=== PATIENT | female | born 1995 ===

== ENCOUNTER 2017-04-06 03:27 | Observation (INO) | payer OTHER ==
[2017-04-06 03:33] VITALS: BMI 23.6
--- NOTE | 2017-04-06 03:58 | ED PDOC ---
Lower Extremity Pain/Injury Time Seen by Provider: 04/06/17 03:48 Chief Complaint (Nursing): Lower Extremity Problem/Injury Chief Complaint (Provider): right foot pain History Per: Patient History/Exam Limitations: no limitations Onset/Duration Of Symptoms: Hrs Current Symptoms Are (Timing): Still Present Additional History Per: Patient Additional Complaint(s): 21 y/o female presents with right foot pain x 1 hour. Patient states she tripped and fell down approx 8 steps. Patient notes diffuse pain to right ankle and right foot, worse with movement. Denies numbness/weakness right lower extremity, limitation of movement. Past Medical History Reviewed: Historical Data, Nursing Documentation, Vital Signs Vital Signs: Last Vital Signs Temp 98.9 F 04/06/17 03:33 Pulse 72 04/06/17 03:33 Resp 16 04/06/17 03:33 BP 112/80 04/06/17 03:33 Pulse Ox 100 04/06/17 03:33 - Medical History PMH: Anxiety - Surgical History Surgical History: No Surg Hx - Family History Family History: States: Unknown Family Hx - Home Medications Home Medications: Ambulatory Orders Medication Instructions Recorded Aspirin [Adult Low Dose Aspirin EC] 81 mg PO DAILY #7 tablet. 04/07/17 Ergocalciferol (Vitamin D2) 50,000 unit PO QD7 #6 capsule 04/07/17 [Vitamin D2] oxyCODONE/Acetaminophen [Percocet 1 tab PO Q4 PRN #0 tab 04/07/17 5/325 mg Tab] - Allergies Allergies/Adverse Reactions: Allergies Allergy/AdvReac Type Severity Reaction Status Date / Time No Known Allergies Allergy Verified 04/06/17 03:32 Review of Systems ROS Statement: Except As Marked, All Systems Reviewed And Found Negative Musculoskeletal: Positive for: Foot Pain (right ankle, right foot) Physical Exam - Reviewed Nursing Documentation Reviewed: Yes Vital Signs Reviewed: Yes - Physical Exam Appears: Positive for: Well, Non-toxic, No Acute Distress (sleeping) Head Exam: Positive for: ATRAUMATIC, NORMAL INSPECTION, NORMOCEPHALIC Cardiovascular/Chest: Positive for: Regular Rate, Rhythm Respiratory: Positive for: Normal Breath Sounds Pulses-Dorsalis Pedis (L): 2+ Pulses-Dorsalis Pedis (R): 2+ Pulses-Post. Tibialis (L): 2+ Pulses-Post. Tibialis (R): 2+ Back: Positive for: Vertebral Tenderness (diffuse lspine; no bony deformity. ), Muscle Spasm (b/l lspine paraspinals). Negative for: L CVA Tenderness, R CVA Tenderness, Decreased ROM Extremity: Negative for: Normal ROM (limited ROM right ankle due to pain. + swelling, most noted right lateral malleolus. Distal NV intact) Neurologic/Psych: Positive for: Alert, Oriented. Negative for: Motor/Sensory Deficits - Laboratory Results Result Diagrams: 04/06/17 10:40 04/06/17 10:25 - ECG O2 Sat by Pulse Oximetry: 100 - Progress ED Course And Treament: xray right foot, xray right ankle, ibuprofen PO EXAM: XR Right Foot Complete, 3 or More Views CLINICAL HISTORY: 21 years old, female; Injury or trauma; Fall; Initial encounter; Blunt trauma; Foot; Right TECHNIQUE: Frontal, lateral and oblique views of the right foot. EXAM DATE/TIME: Exam ordered 04/06/2017 3:54 AM COMPARISON: No relevant prior studies available. FINDINGS: Bones/joints: There is comminuted fracture of the calcaneus best appreciated image 1. This extends to the calcaneal cuboidal articular surface. It is suspected that in addition fracture lines extend to the tarsal sinus, and possibly to the subtalar joints. No dislocation. Soft tissues: Unremarkable. No radiopaque foreign body. IMPRESSION: Comminuted fracture of the calcaneus with intra-articular extension. Possible additional fracture of the cuboid. CT is recommended for clarification. EXAM: XR Right Ankle Complete, 3 or More Views CLINICAL HISTORY: 21 years old, female; Injury or trauma; Fall; Initial encounter; Blunt trauma; Ankle; Right TECHNIQUE: Frontal, lateral and oblique views of the right ankle. EXAM DATE/TIME: Exam ordered 04/06/2017 3:54 AM COMPARISON: No relevant prior studies available. FINDINGS: Bones/joints: There is a comminuted fracture of the calcaneus which is now seen clearly to extends to the posterior subtalar joint, to the calcaneal cuboidal joint, and probably to the middle subtalar joint. There is probable fracture of the cuboid. No dislocation. Soft tissues: There is prominent lateral soft tissue swelling. IMPRESSION: Recommend CT for clarification of the bony relationships of the markedly comminuted calcaneal fracture which extends to multiple articular surfaces, as well as probable fracture of the cuboid Case discussed with Podiatry resident on-call; will order CT lower extremity Disposition - Clinical Impression Clinical Impression: Calcaneal fracture, Back pain - Patient ED Disposition Is Patient to be Admitted: No - Disposition Disposition: Transfer of Care Disposition Time: 06:00 Condition: STABLE Patient Signed Over To: Stephen Alicea Handoff Comments: pending cinthia xray, podiatry eval
[2017-04-06] MEDS ORDERED: Oxycodone/Acetaminophen 5/325 mg Tab PO ONE (05:26)
[2017-04-06] MEDS ORDERED: Oxycodone/Acetaminophen 5/325 mg Tab ONE (05:47)
--- NOTE | 2017-04-06 06:09 | ED PDOC ---
- ECG O2 Sat by Pulse Oximetry: 100 Medical Decision Making Medical Decision Makin Patient signed out to me from ANGELIQUE Esquivel pending CT, XR, and podiatry consult. Scribe Attestation: Documented by Gina Jenkins acting as a scribe for Stephen Alicea MD. Scribe Attestation: All medical record entries made by the Scribe were at my direction and personally dictated by me. I have reviewed the chart and agree that the record accurately reflects my personal performance of the history, physical exam, medical decision making, and the department course for this patient. I have also personally directed, reviewed, and agree with the discharge instructions and disposition. Disposition - Clinical Impression Clinical Impression: Calcaneal fracture, Back pain - POA Present On Arrival: None - Disposition Disposition: Transfer of Care Disposition Time: 07:00 Condition: FAIR Patient Signed Over To: Betsy Pineda Handoff Comments: Pending CT, XR, and podiatry consult
--- NOTE | 2017-04-06 06:17 | CP.PCM.CON ---
Addendum entered and electronically signed by Arnulfo Grant DPM 04/06/17 11:59 : Patient's surgery to now go at 7pm, not 8pm. Original Note: History of Present Illness - History of Present Illness History of Present Illness: 21 y/o female patient presents to the ED 2 hours s/p fall down the stairs. Patient states she is having severe pain and swelling in the right foot and cannot bear any weight. Patient states she has no significant past medical history. Patient admits to taking Percocet for sciatica, which she has had for several years. Patient does not take any other medications. Patient denies any F /C/N/V/SOB. PMHx: no significant PMH PSH: none Allergies: NKDA Social: social EtOh use, 1-2 cigarettes per month, denies illicit drug use Review of Systems - Review of Systems All systems: reviewed and no additional remarkable complaints except (HPI) Past Patient History - Past Social History Smoking Status: Never Smoked - PSYCHIATRIC Hx Anxiety: Yes - SURGICAL HISTORY Hx Surgeries: No - ANESTHESIA Hx Anesthesia: No Meds Allergies/Adverse Reactions: Allergies Allergy/AdvReac Type Severity Reaction Status Date / Time No Known Allergies Allergy Verified 04/06/17 03:32 Physical Exam - Constitutional Appears: Well, Non-toxic, No Acute Distress - Extremities Exam Additional comments: Right lower extremity focused examination: Vasc: DP/PT pulses palpable 2/4, moderate pedal perimalleolar edema noted medially. CFT< 3 sec to all digits. Temperature gradient WNL. Derm: Ecchymosis with surrounding erythema noted to medial ankle. Skin and soft tissue intact, no open lesions, no clinical signs of infection Neuro: Protective sensation grossly intact Ortho: Severe tenderness noted on palpation of medial ankle and entirety of right foot and ankle. - Neurological Exam Neurological exam: Alert, Oriented x3 - Psychiatric Exam Psychiatric exam: Normal Affect, Normal Mood Results - Vital Signs Recent Vital Signs: Last Vital Signs Temp 98.9 F 04/06/17 03:33 Pulse 72 04/06/17 03:33 Resp 16 04/06/17 03:33 BP 112/80 04/06/17 03:33 Pulse Ox 100 04/06/17 06:09 Assessment & Plan - Assessment and Plan (Free Text) Assessment: 21 y/o female seen in ED for right foot intraarticular comminuted calcaneal fracture with possible 2nd metatarsal base fracture secondary to trauma Plan: Pt seen and evaluated in the ED after podiatry consulted X-rays reviewed CT scan ordered of left lower extremity Strict ice and elevation to right lower extremity Patient to remain non-WB to right lower extremity Patient will be going for surgery at 8pm tonight Medical clearance appreciated Patient to be NPO after breakfast Thank you for this consult
--- NOTE | 2017-04-06 07:18 | ED PDOC ---
- ECG O2 Sat by Pulse Oximetry: 100 - Other Rad XR L-spine X-Ray: Viewed By Me (No fx.) - CT Scan/US CT RLE Other Rad Studies (CT/US): Radiology Report Reviewed (Acute comminuted fracture in the calcaneus with approximately 8 mm distraction of fracture fragments and superior displacement of a fragment in the midbody. No evidence of dislocation. ) Disposition - Clinical Impression Clinical Impression: Calcaneal fracture, Back pain - POA Present On Arrival: Falls Or Trauma - Disposition Disposition: Hospitalized as Observation Patient Disposition Time: 09:34 Condition: STABLE Addendum Addendum: 04/06/17 07:00 Pt signed out by Dr. Alicea pending CT and XR.
[2017-04-06] MEDS ORDERED: Oxycodone/Acetaminophen 5/325 mg Tab PO PRN ×2 (09:42→23:31)
--- NOTE | 2017-04-06 09:50 | CT ---
PROCEDURE: CT lower extremity with contrast HISTORY: right calcaneal fracture COMPARISON: None. TECHNIQUE: Contiguous axial images of the right lower extremity with contrast. Coronal and sagittal reformats generated. Radiation dose: Total exam DLP = 361.98 mGy-cm. This CT exam was performed using one or more of the following dose reduction techniques: Automated exposure control, adjustment of the mA and/or kV according to patient size, and/or use of iterative reconstruction technique. FINDINGS: BONES: There is an acute comminuted fracture in the calcaneus with approximately 8 mm distraction of fracture fragments. There is also superior displacement of the fracture fragment in the midbody. The talocalcaneal and calcaneocuboid joints are normal. Bone alignment is normal. The talonavicular joint is also normal. The visualized tarsometatarsal joints are normal. OTHER FINDINGS: The periarticular muscles are grossly normal in appearance. There is diffuse subcutaneous edema and soft tissue swelling. IMPRESSION: Acute comminuted fracture in the calcaneus with approximately 8 mm distraction of fracture fragments and superior displacement of a fragment in the midbody. No evidence of dislocation.
[2017-04-06 10:44] LABS: HEMOGLOBIN 11.7 g/dL (12.0-16.0); MEAN CELL VOLUME 86.9 fl (81.0-99.0); MEAN CORPUSCULAR HEMOGLOBIN 28.8 pg (27.0-31.0); MEAN CORPUSCULAR HGB CONC 33.2 g/dL (33.0-37.0); RBC 4.06 Mil/uL (3.80-5.20); RED CELL DISTRIBUTION WIDTH 12.8 % (11.5-14.5); WHITE BLOOD COUNT 14.3 K/uL (4.8-10.8)
[2017-04-06 10:52] LABS: BLOOD UREA NITROGEN 8 mg/dl (7-17); CALCIUM 8.5 mg/dL (8.4-10.2); GFR AFRICAN-AMERICAN > 60; GFR NON-AFRICAN AMERICAN > 60
[2017-04-06 11:05] LABS: PROTHROMBIN TIME 10.9 Seconds (9.8-13.1)
[2017-04-06] MEDS ORDERED: Dextrose 5%/0.45% NS 1,000 ML IV SCH (12:45)
--- NOTE | 2017-04-06 14:10 | RAD ---
PROCEDURE: Right Ankle Radiographs. HISTORY: Fall COMPARISON: None FINDINGS: BONES: There is an acute comminuted fracture in the calcaneus. JOINTS: Normal. Ankle mortise maintained. Talar dome intact SOFT TISSUES: There is moderate lateral soft tissue swelling. OTHER FINDINGS: There is fluid in the posterior talar bursa. IMPRESSION: Acute comminuted fracture in the calcaneus. Moderate lateral soft tissue swelling.
--- NOTE | 2017-04-06 14:17 | RAD ---
PROCEDURE: Right Foot Radiographs. HISTORY: Trauma COMPARISON: April 06, 2017. CT right lower extremity. FINDINGS: BONES: Comminuted fracture of the calcaneus. JOINTS: Normal. SOFT TISSUES: Soft tissue swelling attests to the acuity of the fracture. OTHER FINDINGS: None. IMPRESSION: Acute calcaneal fracture. Findings better visualized on concurrent CT scan
--- NOTE | 2017-04-06 14:18 | CP.PCM.HP ---
History of Present Illness - History of Present Illness History of Present Illness: CC: Fall and Right Ankle Pain History of Present Illness:A 21yoF with H/O Chronic Back Pain was walking and slipped, and injured right Ankle, and presented to the ER with 8-10/10 pain to the Right Ankle, and X-Ray and CT of the ankle joint showed Acute comminuted fracture in the Calcaneus with approximately 8mm distraction of fracture fragments and superior displacement of a fragment in the mid-body. No chest pain , palpitation, METS Equivalent >4 and Cleared for the surgery. ) Present on Admission - Present on Admission Any Indicators Present on Admission: No History of DVT/PE: No History of Uncontrolled Diabetes: No Urinary Catheter: No Decubitus Ulcer Present: No Review of Systems - Review of Systems All systems: reviewed and no additional remarkable complaints except - Musculoskeletal Musculoskeletal: As Per HPI Past Patient History - Infectious Disease Hx of Infectious Diseases: None - Past Medical History & Family History Past Medical History?: Yes Past Family History: Reviewed and not pertinent - Past Social History Smoking Status: Never Smoked Alcohol: Social Drugs: Denies - HEENT Other/Comment: Wears Eyeglasses - MUSCULOSKELETAL/RHEUMATOLOGICAL Hx Musculoskeletal Disorders: Yes Hx Back Pain: Yes Hx Falls: Yes Other/Comment: Sciatica - PSYCHIATRIC Hx Anxiety: Yes (No meds) Hx Substance Use: No - SURGICAL HISTORY Hx Surgeries: No - ANESTHESIA Hx Anesthesia: No Meds Allergies/Adverse Reactions: Allergies Allergy/AdvReac Type Severity Reaction Status Date / Time No Known Allergies Allergy Verified 04/06/17 03:32 Physical Exam - Constitutional Appears: Well, No Acute Distress - Head Exam Head Exam: ATRAUMATIC, NORMAL INSPECTION, NORMOCEPHALIC - Eye Exam Eye Exam: EOMI, Normal appearance, PERRL Pupil Exam: NORMAL ACCOMODATION, PERRL - ENT Exam ENT Exam: Mucous Membranes Moist, Normal Exam - Neck Exam Neck exam: Positive for: Full Rom, Normal Inspection - Respiratory Exam Respiratory Exam: Clear to Auscultation Bilateral, NORMAL BREATHING PATTERN. absent: Rales - Cardiovascular Exam Cardiovascular Exam: REGULAR RHYTHM, +S1, +S2 - GI/Abdominal Exam GI & Abdominal Exam: Normal Bowel Sounds, Soft. absent: Tenderness - Extremities Exam Extremities exam: Positive for: full ROM Additional comments: Right Ankle Immobilized, and Intact Neuro-vascular function distally - Back Exam Back exam: NORMAL INSPECTION - Neurological Exam Neurological exam: Alert, CN II-XII Intact, Oriented x3, Reflexes Normal Additional comments: Non-weight Bearing to the Right foot. - Psychiatric Exam Psychiatric exam: Normal Affect, Normal Mood - Skin Skin Exam: Dry, Intact, Normal Color, Warm Results - Vital Signs Recent Vital Signs: Last Vital Signs Temp 98 F 04/06/17 11:25 Pulse 80 04/06/17 11:25 Resp 18 04/06/17 11:33 BP 126/85 04/06/17 11:25 Pulse Ox 98 04/06/17 11:25 - Labs Result Diagrams: 04/06/17 10:40 04/06/17 10:25 Labs: Laboratory Results - last 24 hr 04/06/17 04/06/17 04/06/17 10:25 10:25 10:40 WBC 14.3 H RBC 4.06 Hgb 11.7 L Hct 35.3 MCV 86.9 MCH 28.8 MCHC 33.2 RDW 12.8 Plt Count 254 PT 10.9 INR 1.0 APTT 24.0 L Sodium 136 Potassium 4.1 Chloride 104 Carbon Dioxide 22 Anion Gap 13 BUN 8 Creatinine 0.6 L Est GFR ( Amer) > 60 Est GFR (Non-Af Amer) > 60 Random Glucose 106 H Calcium 8.5 - Imaging and Cardiology CT of Right Ankle: Status: Report reviewed by me Additional comment: IMPRESSION: Acute comminuted fracture in the calcaneus with approximately 8 mm distraction of fracture fragments and superior displacement of a fragment in the midbody. No evidence of dislocation. Right Ankle X-Ray: Status: Report reviewed by me Additional comment: Right Calcaneal Commuted Fracture. Soft Tissue swelling. Assessment & Plan (1) Displaced fracture of right calcaneus Assessment and Plan: Commuted fracture Cleared for Right Ankle ORIF Pain Medication PRN Will need ASA/Vit D and Calcium Status: Acute
--- NOTE | 2017-04-06 14:31 | RAD ---
PROCEDURE: Radiographs of the Lumbar Spine. HISTORY: fall, low back pain COMPARISON: No prior. FINDINGS: BONES: Normal alignment. No listhesis. No fracture. DISC SPACES: Unremarkable. OTHER FINDINGS: None. IMPRESSION: Unremarkable radiographs of the lumbar spine.
[2017-04-06] MEDS: Sodium Chloride 0.9% 1,000 ML IV SCH (16:58)
[2017-04-06] MEDS ORDERED: ceFAZolin 1 GM in Sodium Chloride 0.9% 100 ML IVPB ONE (17:42)
[2017-04-06] MEDS ORDERED: Lidocaine 1% Inj (20ml) ONE (18:40)
[2017-04-06] MEDS ORDERED: Bupivacaine 0.5% Inj(30mL) ONE (18:40)
[2017-04-06] MEDS ORDERED: Succinylcholine 200 mg/10 ml Inj IV ONE (18:49)
[2017-04-06] MEDS ORDERED: Propofol 10 mg/ml Inj (20 ML) ONE ×2 (18:49→19:27)
[2017-04-06] MEDS ORDERED: Ropivacaine 0.5% 30ML IV ONE ×2 (18:59→19:18)
[2017-04-06] MEDS ORDERED: Lactated Ringer's 1,000 ML IV ONE ×2 (19:40→20:50)
[2017-04-06] MEDS ORDERED: HYDROmorphone 0.5 mg/0.5 ml ISec IVP PRN (20:32)
--- NOTE | 2017-04-06 20:35 | PCM.ANESB2 ---
Popliteal Nerve Block - Popliteal Nerve Block Date of Procedure: 04/06/17 Anesthesiologist: bowen Pre-Procedure Diagnosis: r calcaneal fx Post-Procedure Diagnosis: same Procedure Performed: Popliteal Nerve Block Right - Procedure Popliteal Nerve Block: This procedure was explained to the patient that it is for post-operative pain management. Consent was obtained after a thorough discussion with the patient regarding the benefits and possible complications of local anesthetic block of the sciatic nerve at the popliteal level. The patient was brought to the operating room and standard monitors are applied. Time-out was held with the circulating nurse to confirm the correct surgery and the appropriate block. Local anesthesia only. After applying oxygen by nasal cannula, patient's operative leg was gently raised and supported and the groove in between the biceps femoris and vastus lateralis muscles was carefully palpated. The skin approximately 8cm above the popliteal crease was then marked. The ultrasound transducer was then applied to the posterior thigh approximately 8cm above the popliteal crease in the transverse plane and the sciatic nerve before its division was visualized lateral to the popliteal artery and in between the bicep femoris and semimembranosus/semitendinosus muscles. After identification, the lateral portion of the thigh was prepped with Betadine solution three times and Lidocaine 1% was injected subcutaneously for topical anesthesia. At this point, a # 21 gauge Stimuplex insulated 4 inch needle was inserted into pre-marked area and advanced in a perpendicular direction. The needle was inserted above the ultrasound transducer in-plane towards the sciatic nerve in a [id number] direction. Needle advancement was performed carefully under direct ultrasound visualization. After repeated negative aspiration, __1___cc of __0.5___ % ___ropivicaine was injected and this was flowed with _ 19 cc of _0.5 % ___ropivicaine . Under ultrasound guidance the local anesthetics were observed tenting the epidural sheath and surrounding the roots of the sciatic nerve. The needle was removed intact and sterile dressing was applied. Pt had no paresthesia or pain during the procedure. The patient tolerated the popliteal nerve block well with stable vital signs and was subsequently prepared for the surgery.
[2017-04-06] MEDS ORDERED: Dexamethasone 4 mg/1 ml ONE (21:07)
[2017-04-06] MEDS ORDERED: Esmolol 100 mg/10ml Inj IV ONE (21:30)
[2017-04-06] MEDS ORDERED: Desflurane Inhalation Anesthetic Liq (240 ml) ONE (22:24)
[2017-04-06] MEDS ORDERED: Naloxone 0.4 mg/ml Inj (Adult) ONE (22:36)
[2017-04-06] MEDS ORDERED: Povidone Iodine 5% Opht SOLUTION OU ONE (22:52)
[2017-04-06] MEDS ORDERED: Bacitracin OINT 15GM TOP ONE (22:52)
--- NOTE | 2017-04-06 23:28 | PCM.SURG1 ---
Surgeon's Initial Post Op Note - Surgeon's Notes Surgeon: James Sprague Dual Rate Dealer: Sherri Harrison PGY-3 Type of Anesthesia: General LMA Anesthesia Administered By: Dr. Johnston Pre-Operative Diagnosis: Right displaced calcaneal fracture Operative Findings: See dictation. M: 2.7 mm VA-LCP Anterior lateral calcaneal plate, 14, (2) 24, 22, 36, 20, 12, 26, 30 2.7 mm VA lock screw, 55 6.5 cannulated 16 thread, 50 6.5 cannulated screw 16 thread, bone putty, (2) 3-0 vicryl, (2) 3-0 nylon. I: none Post-Operative Diagnosis: same Operation Performed: ORIF of R calcaneous Specimen/Specimens Removed: none Estimated Blood Loss: EBL {In ML}: 0 Blood Products Given: N/A Drains Used: No Drains Post-Op Condition: Good Date of Surgery/Procedure: 04/06/17 Time of Surgery/Procedure: 23:29
[2017-04-07] MEDS: Sodium Chloride 0.9% 1,000 ML IV SCH (06:50)
[2017-04-07] MEDS ORDERED: ceFAZolin 2 GM in Sodium Chloride 0.9% 100 ML IVPB SCH (09:00)
--- NOTE | 2017-04-07 11:00 | CP.PCM.DIS ---
Provider - Provider Date of Admission: 04/06/17 09:34 Attending physician: Ashley Giles MD Time Spent in preparation of Discharge (in minutes): 25 Diagnosis - Discharge Diagnosis (1) Displaced fracture of right calcaneus Status: Acute Hospital Course - Lab Results Lab Results: Most Recent Lab Values WBC 14.3 K/uL (4.8-10.8) H 04/06/17 10:40 RBC 4.06 Mil/uL (3.80-5.20) 04/06/17 10:40 Hgb 11.7 g/dL (12.0-16.0) L 04/06/17 10:40 Hct 35.3 % (34.0-47.0) 04/06/17 10:40 MCV 86.9 fl (81.0-99.0) 04/06/17 10:40 MCH 28.8 pg (27.0-31.0) 04/06/17 10:40 MCHC 33.2 g/dL (33.0-37.0) 04/06/17 10:40 RDW 12.8 % (11.5-14.5) 04/06/17 10:40 Plt Count 254 K/uL (130-400) 04/06/17 10:40 PT 10.9 Seconds (9.8-13.1) 04/06/17 10:25 INR 1.0 (0.9-1.2) 04/06/17 10:25 APTT 24.0 Seconds (25.6-37.1) L 04/06/17 10:25 Sodium 136 mmol/l (132-148) 04/06/17 10:25 Potassium 4.1 MMOL/L (3.6-5.0) 04/06/17 10:25 Chloride 104 mmol/L (98-107) 04/06/17 10:25 Carbon Dioxide 22 mmol/L (22-30) 04/06/17 10:25 Anion Gap 13 (10-20) 04/06/17 10:25 BUN 8 mg/dl (7-17) 04/06/17 10:25 Creatinine 0.6 mg/dL (0.7-1.2) L 04/06/17 10:25 Est GFR ( Amer) > 60 04/06/17 10:25 Est GFR (Non-Af Amer) > 60 04/06/17 10:25 Random Glucose 106 mg/dL (65-105) H 04/06/17 10:25 Calcium 8.5 mg/dL (8.4-10.2) 04/06/17 10:25 Discharge Exam - Head Exam Head Exam: ATRAUMATIC, NORMAL INSPECTION, NORMOCEPHALIC - Eye Exam Eye Exam: EOMI, Normal appearance, PERRL Pupil Exam: NORMAL ACCOMODATION, PERRL - ENT Exam ENT Exam: Mucous Membranes Moist, Normal Exam - Neck Exam Neck exam: Full Rom, Normal Inspection - Respiratory Exam Respiratory Exam: Clear to PA & Lateral, NORMAL BREATHING PATTERN - Cardiovascular Exam Cardiovascular Exam: REGULAR RHYTHM, +S1, +S2 - GI/Abdominal Exam GI & Abdominal Exam: Normal Bowel Sounds - Extremities Exam Extremities exam: normal capillary refill Additional comments: S/P ORIF Right Ankle Immobilized +Mild swelling most Likely dependent Edema but able to move the Toes, and Neuro- vascular function- Intact. - Back Exam Back exam: NORMAL INSPECTION - Neurological Exam Neurological exam: Alert, CN II-XII Intact, Normal Gait, Oriented x3, Reflexes Normal - Psychiatric Exam Psychiatric exam: Normal Affect, Normal Mood - Skin Skin Exam: Dry, Intact, Normal Color, Warm Discharge Plan - Discharge Medications Prescriptions: Aspirin [Adult Low Dose Aspirin EC] 81 mg PO DAILY #7 tablet. Ergocalciferol (Vitamin D2) [Vitamin D2] 50,000 unit PO QD7 #6 capsule - Follow Up Plan Condition: STABLE Disposition: HOME/ ROUTINE Instructions: Back Pain (GEN) Additional Instructions: patient cleared for discharge to Home today by Podiatry and Rx for meds provided pt. seen by PT, doing well pt. will f/u with in 1 week f/u at podiatry clinic Referrals: Podiatry Clinic [Outside] Ashley Giles MD [Staff Provider] -
[2017-04-07] MEDS ORDERED: Morphine 4 MG/ML VIAL IVP PRN (11:30)
--- NOTE | 2017-04-07 12:03 | CP.PCM.PN ---
Subjective - Date & Time of Evaluation Date of Evaluation: 04/07/17 Time of Evaluation: 12:00 - Subjective Subjective: 21 y/o female seen at bedside 1 day s/p ORIF of the R calcaneous. Pt is in NAD and is AAOx3. Pt states that she slept well overnight and did not have too much pain. Pt denies of any acute overnight event. Pt denies of any F/N/V/C/SOB today. Pt's cast is clean and intact. Objective - Vital Signs/Intake and Output Vital Signs (last 24 hours): Temp Pulse Resp BP Pulse Ox 98.2 F 84 18 116/67 97 04/07/17 08:09 04/07/17 08:09 04/07/17 08:09 04/07/17 08:09 04/07/17 08:09 Intake and Output: 04/07/17 04/07/17 06:59 18:59 Intake Total 700 Balance 700 - Medications Medications: Current Medications Acetaminophen (Tylenol 325mg Tab) 650 mg PO Q4 PRN PRN Reason: Pain, Mild (1-3) Dextrose/Sodium Chloride (Dextrose 5%/0.45% Ns 1000 Ml) 1,000 mls @ 100 mls/hr IV .Q10H [facility] Stop: 04/07/17 12:32 Last Admin: 04/06/17 13:14 Dose: 100 mls/hr Sodium Chloride (Sodium Chloride 0.9%) 1,000 mls @ 100 mls/hr IV .Q10H [facility] Stop: 04/07/17 14:22 Last Admin: 04/07/17 06:50 Dose: 100 mls/hr Cefazolin Sodium 2 gm/ Sodium (Chloride) 100 mls @ 100 mls/hr IVPB Q8 [facility] Last Admin: 04/07/17 10:00 Dose: 100 mls/hr Ketorolac Tromethamine (Toradol) 15 mg IVP Q6 PRN PRN Reason: Pain, moderate (4-7) Ketorolac Tromethamine (Toradol) 30 mg IVP Q6 PRN PRN Reason: Pain, severe (8-10) Morphine Sulfate (Morphine) 2 mg IVP Q4 PRN PRN Reason: Pain, severe (8-10) Ondansetron HCl (Zofran Inj) 4 mg IVP Q6 PRN PRN Reason: Nausea/Vomiting Oxycodone/Acetaminophen (Percocet 5/325 Mg Tab) 2 tab PO Q4 PRN PRN Reason: Pain, moderate (4-7) Stop: 04/09/17 09:43 Last Admin: 04/06/17 12:00 Dose: 2 tab Oxycodone/Acetaminophen (Percocet 5/325 Mg Tab) 1 tab PO Q4 PRN PRN Reason: Pain, moderate (4-7) Stop: 04/09/17 23:32 - Labs Labs: 04/06/17 10:40 04/06/17 10:25 PT 10.9 Seconds (9.8-13.1) 04/06/17 10:25 INR 1.0 (0.9-1.2) 04/06/17 10:25 APTT 24.0 Seconds (25.6-37.1) L 04/06/17 10:25 - Constitutional Appears: Well, Non-toxic, No Acute Distress - Extremities Exam Additional comments: Right foot focused: VASC: DP/PT pulses are palpable 2/4, [facility]: < 3 sec x 10, TG: warm to warm, non- pitting edema noted on R ankle as well as posterior heel DERM: surgical site is well coapted, surgical sutures are intact, no active drainage, no dehiscence, no malodor, mild erythema noted surrounding the surgical site, no clinical suspicion of infection NEURO: Protective sensation grossly intact ORTHO: pain upon active ROM at the ankle joint - Neurological Exam Neurological Exam: Alert, Awake, Oriented x3 - Psychiatric Exam Psychiatric exam: Normal Affect, Normal Mood Assessment and Plan - Assessment and Plan (Free Text) Assessment: 21 y/o female seen at bedside 1 day s/p ORIF of right calcaneal fracture Plan: Pt evaluated and chart reviewed Labs and vitals reviewed (afebrile) Dressing changed using betadine, adaptic, webril, MARQUIS and new cast applied Pt tolerated the dressing change well Percocet PRN pain Physical therapy on board - waiting for final PT recommendations Pt stable from podiatry as far as pain is well controlled Pt educated to follow up in podiatry clinic Pt demonstrated verbal understanding Podiatry to follow pt while in-house
--- NOTE | 2017-04-07 14:39 | RAD ---
PROCEDURE: Right Ankle Radiographs. HISTORY: Trauma common known calcaneal fracture COMPARISON: April 06, 2017. CT of the right heel FINDINGS: BONES: Satisfactory postoperative status. No evidence of orthopedic hardware failure. JOINTS: Normal. No osteoarthritis. Ankle mortise maintained. Talar dome intact SOFT TISSUES: Normal. OTHER FINDINGS: None. IMPRESSION: Satisfactory alignment of major fracture fragments right calcaneus. Hardware in satisfactory position. Limitations of the current study: Detail obscured by overlying fiberglass cast.
[2017-04-07 15:55] VITALS: BP 125/81; PULSE 94; RESP 19; TEMP 98.1
[2017-04-08] MEDS ORDERED: ceFAZolin 2 GM in Sodium Chloride 0.9% 100 ML IVPB SCH (09:00)
--- NOTE | 2017-04-09 11:02 | RAD ---
PROCEDURE: Intraoperative Fluoroscopy. HISTORY: ORIF RT. ANKLE FINDINGS: Fluoroscopic assistance was provided. Approximately 102 seconds of fluoroscopy time utilized during this procedure. Please refer to the operative report for additional details.
--- NOTE | 2017-04-11 13:14 | PCM.OP ---
Operative Report - Operative Report Date of Surgery/Procedure: 04/06/17 Time of Surgery/Procedure: 08:00 Surgeon: Dr. James Sprague Bell Tier: Olamide Warren PGY-3, Bolivar Lundy PGY-3, Brian Chen DPM Anesthesia/Sedation: General endo Pre-Operative Diagnosis: Right calcaneal fracture Post-Operative Diagnosis: Same Indication for Surgery: Patient is a 21 year old female with a right calcaneal intra-articular fracture sustained while falling down stairs two days prior. Patient is seeking surgical intervention at this time. Patient signed the consent after careful explanation of risks, benefits, complications and alternatives to surgical procedure. No guarantees were given nor implied. 2 Grams of Ancef IV were given to the patient prior to the procedure. NPO status was confirmed prior to taking the patient to the operating room. Patient was brought into the operating room and placed on the operating room table in supine position. A well padded thigh tourniquet was placed to the patients left thigh. Prior to the procedure a popliteal block was performed to the right lower extremity. The right foot was then prepped and draped in the ususal sterile manner and the procedure began. Operative Findings: See procedure Procedure/Operation Description: Right calcaneus ORIF with synthes minimal incision plate: Attention was directed to the lateral aspect of the right foot. Under c-arm guidance, the distal aspect of the fibula and the sinus tarsi were mapped out. Next, using a #15 blade an approximately 3 cm curvilinear incision was created appx one centimeter distal to the tip of the fibula and extending over the sinus tarsi. The incision was deepened through the subcutaneous tissues with care being taken to identify and retract all vital neurovascular structures. All bleeders were cauterized and ligated as necessary. Blunt dissection was continued through the deep tissues. Next, a periosteal inscision was created over the most dorsal aspect of the calcaneus using a #15 blade. Using a periosteal elevator a full thickness flap was created plantarly. The freer elevator was used to undermine the soft tissue of the dorsal calcanues anteriorly, centrally, and posteriorly in order to visualize the fracture lines. Once the calcaneus was adequately exposed, the full thickness flap was retracted plantarly with the peroneal tendons retracted dorsally. Next, a 2.7 VA-LCP Anterior lateral calcaneal plate was selected from the synthes set. The size was checked under fluoroscopy. The distal apsect of the plate was then tacked down to the anterior process of the calcaneus using a BB lencho. Then the fracture fragments were carefully manipulated into correct position and the posterior apsect of the plate was tacked down with another BB lencho from the set. The positioning of the plate was checked under fluoroscopy and was adjusted to sit in proper position on the lateral calcaneus as needed. Once correct position was verified, the anterior holes of the plate were drilled using the 2-0 drill bit from the set and appropriate sized 2.7 screws were selected and inserted into the plate. The fracture edges were carefully cleaned and curetted as needed and manipulated into place as the plate was applied. Next, the k wire for the reduction joystick was drilled from posterior lateral on the calcaneal tuber to just slightly anteromedial. The reduction joystick was then assembled and screwed into the bone over the k wire. The joystick was then utilized to further reduce the fracture fragments into proper alignment. Once this was accomplished, the remaining holes of the calcaneal plate were drilled and screws inserted. The screws sized utilized were 2.7 14mm, 24 mm, 22mm, 36 mm, 20 mm, 12 mm, 26 mm, and 30 mm. Once the plate was secured down the position was checked under fluoroscopy. Next, the joystick apparatus and k- wire were removed. A new k wire was driven from the posterolateral calcaneal tuber from posterolateral to anteromedial in order to fixate the saggital fracture line. Next the wire was drilled over using the 5.0 cannulated drill bit. The wire was measured and a 6.5 55 mm cannulated screw was selected and insterted over the wire. The positioning was checked under fluoroscopy. The wound was copiosly irrigated with normal sterile saline. Then bone putty was inserted in the fracture line laterally. The periosteal and capsular tissues were reapproximated and coapted using 2-0 vicryl, deep closure was done using 3-0 vicryl, subcuticular closure was done using 4-0 vicryl, and skin was reapproximated and coapted using 4-0 nylon. The wound was dressed with betadine adaptic, DSD, kerlix, and a bivalved below knee cast was applied. Estimated Blood Loss: 15 ml Complications: None Discharge & Condition: The patient tolerated the anesthesia and procedure well and was escorted to the recovery room with vital signs stable and neurovascular status intact to the right foot. The patient was admitted for overnight observation and discharged to home when stable. She will be following up with Dr. Sprague in podiatry clinic.
[2017-04-12 04:22] VITALS: O2SAT 100
== END 2017-04-07 18:20 | disposition home or self-care (01) ==
LOC: H.ER 03:27 → H.ERHOLD 09:34 → H.MEDSURG1 11:21
PROVIDERS: ADMIT Internal Medicine; ATTEND Internal Medicine
DX: S92.001A Unspecified fracture of right calcaneus, initial encounter for closed fracture (principal); W10.9XXA Fall (on) (from) unspecified stairs and steps, initial encounter; Y93.9 Activity, unspecified; Y92.9 Unspecified place or not applicable; G89.29 Other chronic pain; F41.9 Anxiety disorder, unspecified

== ENCOUNTER 2018-03-26 18:36 | Emergency (ER) | payer OTHER ==
[2018-03-26 18:36] VITALS: BMI 23.6
[2018-03-26 18:41] VITALS: BP 138/91; PULSE 91; RESP 17; TEMP 99; O2SAT 100
--- NOTE | 2018-03-26 19:01 | ED PDOC ---
Lower Extremity Pain/Injury Time Seen by Provider: 03/26/18 18:44 Chief Complaint (Nursing): Lower Extremity Problem/Injury Chief Complaint (Provider): left knee pain and swelling History Per: Patient Additional Complaint(s): 22 y/o female presents with pain and swelling to left knee s/p injury while squatting at the gym 2 weeks ago. Patient did not seek medical attention at time of injury and presents today with worsening pain and swelling not relieved by tylenol. Patient able to walk but with pain. PMD: none Past Medical History Reviewed: Historical Data, Nursing Documentation, Vital Signs Vital Signs: Last Vital Signs Temp 99.0 F 03/26/18 18:39 Pulse 91 H 03/26/18 18:39 Resp 17 03/26/18 18:39 BP 138/91 H 03/26/18 18:39 Pulse Ox 100 03/26/18 18:39 - Medical History PMH: Anxiety - Surgical History Other surgeries: left foot surgery - Family History Family History: States: No Known Family Hx - Living Arrangements Living Arrangements: With Family - Social History Current smoker - smoking cessation education provided: No Alcohol: None Drugs: Denies - Home Medications Home Medications: Ambulatory Orders Medication Instructions Recorded Aspirin [Adult Low Dose Aspirin EC] 81 mg PO DAILY #7 tablet. 04/07/17 Ergocalciferol (Vitamin D2) 50,000 unit PO QD7 #6 capsule 04/07/17 [Vitamin D2] oxyCODONE/Acetaminophen [Percocet 1 tab PO Q4 PRN #0 tab 04/07/17 5/325 mg Tab] Naproxen [Naprosyn] 500 mg PO BID #20 tab 03/26/18 - Allergies Allergies/Adverse Reactions: Allergies Allergy/AdvReac Type Severity Reaction Status Date / Time No Known Allergies Allergy Verified 04/06/17 03:32 Wells Criteria for PE - Wells Criteria for Pulmonary Embolism Clinical Signs and Symptoms of DVT: No P.E is #1 Diagnosis, or Equally Likely: No Heart Rate >100: No Immobilization at least 3 days;Surgery previous 4 weeks: No Previous, objectively diagnosed PE or DVT: No Hemoptysis: No Malignancy w/treatment within 6 months, or palliative: No Total Score: 0 Review of Systems ROS Statement: Except As Marked, All Systems Reviewed And Found Negative Musculoskeletal: Positive for: Other (left knee injury) Physical Exam - Reviewed Nursing Documentation Reviewed: Yes Vital Signs Reviewed: Yes - Physical Exam Appears: Positive for: Well, Non-toxic, No Acute Distress Skin: Positive for: Normal Color. Negative for: Rash Eye Exam: Positive for: Normal appearance Extremity: Positive for: Other (Tenderness and swelling medial aspect of left knee with full range of motion, no warmth or erythema noted, no calf swelling or tenderness, normal distal sensation left lower extremity) Neurologic/Psych: Positive for: Alert, Oriented - Laboratory Results Urine POC: Negative - ECG O2 Sat by Pulse Oximetry: 100 Pulse Ox Interpretation: Normal - Other Rad Left knee x-ray X-Ray: Interpreted by Me, Viewed By Me X-Ray Interpretation: STS, no fx, no dis Medical Decision Making Medical Decision Makin22 year old with left knee pain and swelling Plan: test X-ray left knee IM toradol Patient is aware of x-ray results. All questions answered. Patient given crutches and knee immobilizer. Rx motrin, referral to ortho podiatric surgeon. Procedures - Splinting Location: left knee Pre-Made Type: knee immobilizer Pre-Proc Neuro Vasc Exam: normal Post-Proc Neuro Vasc Exam: normal Disposition - Clinical Impression Clinical Impression: Knee sprain - Patient ED Disposition Is Patient to be Admitted: No Counseled Patient/Family Regarding: Studies Performed, Diagnosis, Need For Followup, Rx Given - Disposition Referrals: Aleksandar Kelley MD [Staff Provider] - Disposition: Routine/Home Disposition Time: 19:40 Condition: STABLE Additional Instructions: ICE, REST AND ELEVATE AFFECTED AREA. TAKE RX MEDS DIRECTED NEEDED FOR PAIN. FOLLOW UP WITH ORTHOPEDIST IN 2-3 DAYS. Prescriptions: Naproxen [Naprosyn] 500 mg PO BID #20 tab Instructions: Knee Sprain (DC) Forms: [employer] ([place]ori)
--- NOTE | 2018-03-27 10:42 | RAD ---
PROCEDURE: Left Knee Radiographs. HISTORY: Pain. COMPARISON: None. FINDINGS: BONES: No acute fracture or destructive bony lesion identified. JOINTS: Normal. No osteoarthritis. JOINT EFFUSION: None. OTHER FINDINGS: None. IMPRESSION: Unremarkable radiographs of the left knee.
== END 2018-03-26 19:59 | disposition home or self-care (01) ==
LOC: H.ER 18:36
DX: S83.92XA Sprain of unspecified site of left knee, initial encounter (principal); X50.9XXA Other and unspecified overexertion or strenuous movements or postures, initial encounter; Y92.89 Other specified places as the place of occurrence of the external cause; F41.9 Anxiety disorder, unspecified; Z79.82 Long term (current) use of aspirin
CPT/HCPCS: 29530; 73562; 81025; 96372; 99284; J1885